=== PATIENT | female | born 2005 | race Caucasian/White ===

== ENCOUNTER 2024-01-11 10:27 | Emergency (ER) | payer BC, SELFPAY ==
[2024-01-11 10:37] VITALS: BP 122/93
--- NOTE | 2024-01-11 11:15 | ED.GENMED ---
History of Present Illness
General
Chief Complaint: Abdominal Symptoms
Time Seen by Provider: 01/11/24 11:15
Travel History
Have you had any contact with someone who has COVID-19?: No
Do you have any symptoms of coronavirus? Fever > 100 degrees, chills, cough, shortness of breath, sore throat, loss of taste or smell, muscle aches, or headache?: No
History of Present Illness
History of Present Illness:
HPI: The patient presents due to diarrhea ongoing for the last several months. She has a history of anorexia for the past 3 years. She had been abusing laxatives but no longer is abusing laxatives. She has been trying to put on weight. She feels
dehydrated. She has no abdominal pain. She also reports prior bradycardia and then tachycardia.
EXAM:
GENERAL: Well appearing in no distress, she appears thin but not cachectic
HEENT: Slightly dry oral mucosa
CARDIOVASCULAR: No murmurs, normal heart rate with heart rate of 72 on my initial evaluation, regular rhythm, No chest wall tenderness
PULMONARY: No respiratory distress, breath sounds are clear and equal
ABDOMEN: Soft with no peritoneal signs, no tenderness
NEUROLOGIC: Excellent strength all extremities, no coordination deficits
PSYCHIATRIC: Appropriate mental status, normal insight and judgement
EXTREMITIES: Nontender, no edema, moves all extremities equally
SKIN: No rash, no lesions
TIME OF INITIAL ENCOUNTER: 11:20 AM
NUMBER AND COMPLEXITY OF PROBLEMS ADDRESSED AT THE ENCOUNTER
� Chronic conditions affecting care: Anorexia
� Acute Exacerbation and/or Progression of Chronic Illness: This is a subacute problem
� Differential Diagnosis includes: Dehydration, electrolyte abnormality, CELIA, infectious diarrhea
AMOUNT AND/OR COMPLEXITY OF DATA TO BE REVIEWED AND ANALYZED
� I performed an independent evaluation of and my interpretation is:
EKG: Sinus 58, no acute ST abnormality, normal intervals
CT:
X-rays:
Laboratory Studies: White count 7.3, hemoglobin normal, chemistries are normal, hCG is negative, lipase is normal, renal function is normal
Other:
� Review of other/old records: The patient was seen here in 2022 with abdominal pain and at that time had a normal white blood cell count and relatively unremarkable chemistries
� Clinical information was obtained by an independent historian: None needed
� Prescriptions/Medications Considered but not given:
� Further testing considered but not performed:
RISK OF COMPLICATIONS AND/OR MORBIDITY OR MORTALITY OF PATIENT MANAGEMENT
� Social determinants of health affecting care: Lives at home
� Discussion with other providers:
� Escalation of care including admission/observation vs risk of discharge considered: The patient has a history of anorexia and presents with months of diarrhea without abdominal pain. She is concerned of dehydration�we are
giving IV fluids. The patient was initially tachycardic however she also admits to feeling very anxious upon arrival to triage. She has been bradycardic in the past and heart rate here has been primarily around 60. On reassessment at 2:45 PM, the
patient appears very comfortable. I also suggest that she follows up with GI. She did receive a liter of fluid. I have relatively low suspicion for an infectious etiology of diarrhea we talked about the possibility of IBS.
Past History
Past History
ED Past Medical History: Psychiatric (Anxiety, depression, panic disorder, anorexia)
ED Past Surgical History: Other (Rhinoplasty 2019)
Social History
Tobacco: Non-smoker
Alcohol: None
Drug: None
Personal: Single
Living: with family
Phy Exam
Physical Exam
Physical Exam:
See HPI
Course
Orders/Labs/Results
Orders:
Orders
01/11/24 11:16
0.9% Sodium Chloride 1000 ml [Nss] 1,000 ml IV BOLUS
01/11/24 11:17
STOOL [C difficile Antigen & Toxins] Urgent
BENEDICT Source: Feces/Stool
Specimen Description:
Stool Culture Urgent
BENEDICT Source: Feces/Stool
Specimen Description:
01/11/24 11:24
Test Result ONCE
01/11/24 11:32
Complete Blood Count/With Diff Urgent
Comprehensive Metabolic Panel Urgent
HCG, Serum Qualitative Screen Urgent
Lipase Urgent
Magnesium Urgent
01/11/24 12:13
ECG [Electrocardiogram (*1)] Urgent
Reason for Study: Tachycardia
01/11/24 12:14
EKG- Treatment ONCE
Abnormal Lab Results
01/11/24
11:32
RBC 3.97 L 10^6/uL
(4.20-5.40)
MCH 32.7 H pg
(27.0-31.0)
01/11/24 11:32
01/11/24 11:32
Vital Signs
Pulse: 72
Initial and Last Documented VS:
Initial Vital Signs
Temp Pulse Resp BP Pulse Ox
98.7 F 114 20 122/93 100
01/11/24 10:37 01/11/24 10:37 01/11/24 10:37 01/11/24 10:37 01/11/24 10:37
Last Documented Vital Signs
Temp Pulse Resp BP Pulse Ox
98.7 F 64 20 92/64 100
01/11/24 10:37 01/11/24 12:58 01/11/24 12:58 01/11/24 12:58 01/11/24 12:58
*Critical Care Note
Total Time (30-74mins, 75-104mins- exclusive of procedures): Not Applicable
ED Attending Note
-
Portions of this chart may have been created with voice recognition software.� Occasional wrong word or��sound alike� substitutions may have occurred due to the inherent limitations of voice recognition software.
Discharge Plan
Departure
Patient Disposition: Home (Routine Discharge)
Date of Disposition: 01/11/24
Time of Disposition: 14:47
Patient with high blood pressure during this ER visit?: Yes
Discharge Problem:
Acute dehydration
Prescriptions:
No Action
ondansetron 4 mg tablet,disintegrating
4 mg PO Q8H PRN (Reason: nausea and vomiting) 4 Days Qty: 10 0RF
pantoprazole [Protonix] 40 mg tablet,delayed release (DR/EC)
40 mg PO DAILY Qty: 30 0RF
Referrals:
Tobias Alfaro MD [Active] - Follow up in 2-3 days
UNKNOWN - PT DOES,NOT KNOW [Family Provider] -
Activity Restrictions/Additional Instructions:
We have given you a bag of fluid for the possibility of some mild dehydration however your blood work is normal. Your white blood cell count is normal, your electrolytes and kidney function are all normal. testing is negative. EKG is
normal. Please follow-up with GI as well.
Interventions
Interventions:
*Risk Screen - Suicide Last Done: 01/11/24 10:40
*General Assessment Last Done: 01/11/24 10:40
*Neglect/Abuse Screening Last Done: 01/11/24 10:40
ED- Fall Risk Assessment Last Done: 01/11/24 11:41
VX-Entaiy-Yczwcgejrm Assessment Last Done: 01/11/24 11:40
Discharge Date and Time
Print Language: [place]
[2024-01-11] MEDS: NSS 1000 IV (11:31)
[2024-01-11 11:35] VITALS: BP 92/66
[2024-01-11 11:46] LABS: % Basophils 0.8 % (0-2); % Eosinophils 5.7 % (0-6); % Immature Granulocytes 0.1 % (0-0.5); % Lymphocytes 26.1 % (20.5-51.1); % Monocytes 5.6 % (1.7-9.3); % Neutrophils 61.7 % (42.2-75.2); Absolute Basophils 0.1 10^3/uL (0-0.2); Absolute Eosinophils 0.4 10^3/uL (0-0.7); Absolute Lymphocytes 1.9 10^3/uL (1.2-3.4); Absolute Monocytes 0.4 10^3/uL (0.1-0.6); Absolute Neutrophils 4.5 10^3/uL (1.4-6.5); Mean Corp Hgb Conc. 35.1 g/dL (33.0-37.0); Mean Corpuscular Hgb 32.7 pg (27.0-31.0); Mean Corpuscular Volume 93.2 fL (81.0-99.0); Mean Platelet Volume 8.9 fL (7.4-10.4); Nucleated Red Blood Cells % 0 %; Platelet Count 334 10^3/uL (130-400); Red Blood Cell Count 3.97 10^6/uL (4.20-5.40); Red Cell Dist. Width 11.9 % (11.5-14.5); White Blood Cell Count 7.3 10^3/uL (4.8-10.8)
[2024-01-11 11:57] LABS: HCG, Serum Qualitative Screen Negative
[2024-01-11 11:58] LABS: ALT (SGPT) 15 U/L (0-35); AST (SGOT) 20 U/L (14-36); Albumin 4.1 g/dl (3.5-5.0); Alkaline Phosphatase 50 U/L (38-126); Blood Urea Nitrogen 11 mg/dl (7-17); Calcium 9.4 mg/dl (8.4-10.2); Carbon Dioxide 26 mmol/L (22-30); Chloride 103 mmol/L (98-107); Glucose 85 mg/dl (70-99); Lipase 55 U/L (23-300); Magnesium 1.7 mg/dl (1.6-2.3); Potassium 4.2 mmol/L (3.5-5.1); Sodium 137 mmol/L (135-145); Total Bilirubin 0.4 mg/dl (0.2-1.3); eGFR > 60.00
[2024-01-11 12:58] VITALS: BP 92/64
[2024-01-11 15:08] VITALS: BP 97/66
== END 2024-01-11 15:09 | disposition home or self-care (01) ==
LOC: EMR 10:27
PROVIDERS: EMERGENCY PHYSICIAN Emergency Medicine
DX: E86.0 Dehydration (principal); R03.0 Elevated blood-pressure reading, without diagnosis of hypertension
CPT/HCPCS: 99284; 96360; 80053; 83690; 83735; 84703; 85025; 93005

== ENCOUNTER → 2024-03-30 09:12 | Outpatient (REF) | payer BC, SELFPAY | LOC: RCS 09:12 | PROVIDERS: ATTENDING PHYSICIAN Nurse Practitioner Adult Health | DX: F50.00 Anorexia nervosa, unspecified (principal) | CPT/HCPCS: 93306 ==

== ENCOUNTER 2024-08-13 12:29 | Emergency (ER) | payer BC, SELFPAY ==
[2024-08-13 12:32] VITALS: BP 130/99
[2024-08-13 13:08] LABS: % Basophils 0.3 % (0-2); % Eosinophils 0.7 % (0-6); % Immature Granulocytes 0.2 % (0-0.5); % Lymphocytes 18.1 % (20.5-51.1); % Monocytes 9.7 % (1.7-9.3); Absolute Eosinophils 0.1 10^3/uL (0-0.7); Absolute Lymphocytes 1.6 10^3/uL (1.2-3.4); Absolute Monocytes 0.9 10^3/uL (0.1-0.6); Absolute Neutrophils 6.3 10^3/uL (1.4-6.5); Hematocrit 41.2 % (37.0-47.0); Hemoglobin 14.4 g/dL (12.0-16.0); Mean Corpuscular Hgb 31.2 pg (27.0-31.0); Mean Corpuscular Volume 89.2 fL (81.0-99.0); Mean Platelet Volume 9.2 fL (7.4-10.4); Nucleated Red Blood Cells % 0 %; Platelet Count 313 10^3/uL (130-400); Red Blood Cell Count 4.62 10^6/uL (4.20-5.40); Red Cell Dist. Width 11.5 % (11.5-14.5); White Blood Cell Count 8.9 10^3/uL (4.8-10.8)
[2024-08-13 13:18] LABS: HCG, Serum Qualitative Screen Negative
[2024-08-13 13:21] LABS: ALT (SGPT) 26 U/L (0-35); AST (SGOT) 25 U/L (14-36); Alkaline Phosphatase 55 U/L (38-126); Blood Urea Nitrogen 12 mg/dl (7-17); Calcium 9.9 mg/dl (8.4-10.2); Carbon Dioxide 25 mmol/L (22-30); Chloride 103 mmol/L (98-107); Glucose 98 mg/dl (70-99); Potassium 3.7 mmol/L (3.5-5.1); Sodium 140 mmol/L (135-145); Total Bilirubin 0.5 mg/dl (0.2-1.3); Total Protein 7.9 g/dl (6.3-8.2); eGFR > 60.00
[2024-08-13 13:38] LABS: Monotest Negative (Negative)
[2024-08-13 13:40] LABS: COVID-19 Antigen Negative (Negative)
== END 2024-08-13 13:54 ==
LOC: EMR 12:29
PROVIDERS: Emergency Medicine; FAMILY PHYSICIAN Nurse Practitioner Adult Health
DX: R00.0 Tachycardia, unspecified (principal)
CPT/HCPCS: 80053; 84703; 85025; 86308; 87070; 87502; 87811; 87880

== ENCOUNTER 2024-08-15 12:19 | Emergency (ER) | payer BC, SELFPAY ==
[2024-08-15 12:21] VITALS: BP 130/91
--- NOTE | 2024-08-15 12:28 | ED.GENMED ---
ED Provider Triage
<Jessica Barahona ENTERPRISE ACCOUNT MANAGER - Last Filed: 08/15/24 12:39>
-
Patient seen by provider in Triage?: Seen in Triage
Attestation: A medical screening examination has been initiated by a qualified medical provider. Based on the assessment performed at this time, it has been determined that an emergent medical condition may exist and the patient has been informed
that further medical evaluation and possible additional diagnostic testing may be needed.
HPI:
18-year-old female here with sore throat. She was initially evaluated here 2 days ago, and she has had blood work drawn but left prior to being evaluated.
Labs, including mono test were neg
Went to Urgent Care yesterday as fever was 102.0, started on Amoxicillin, Has had two doses so far. Last Tylenol last night.
She states she's here as her mom was worried 'because I have POTS and anorexia and I haven't been eating.' Pt states 'I'm afraid I'll slip back to anorexia'
GENERAL: Alert , in no apparent distress
EYE: No visual abnormalities.
NECK: Trachea midline, mild tender bilateral cervical lymphadenopathy
ENT: No visible abnormalities. Pharynx mildly erythematous, no abscess. Speaking well.
LUNGS: No acute respiratory distress
NEUROLOGICAL: Alert and oriented
SKIN: Skin intact. No visible changes.
MUSCULOSKELETAL: Moving extremities normally
PSYCH: Normal and appropriate interaction.
This is a medical evaluation conducted in person to initiate diagnostic evaluation and provide initial therapeutics. Please see further documentation by the treating clinician.
History of Present Illness
<Jessica Barahona ENTERPRISE ACCOUNT MANAGER - Last Filed: 08/15/24 12:39>
General
Chief Complaint: Cold/Flu/URI Symptoms
Time Seen by Provider: 08/15/24 14:36
<Gray Cuenca Jr., PA-C - Last Filed: 08/15/24 16:55>
General
Source: patient and family
Exam Limitations: none
Nursing documentation reviewed up to this point in time: agreed with
History of Present Illness
History of Present Illness:
18-year-old female presenting to the emergency department today with concerns of sore throat ongoing over the past week or so. Had negative mono testing a few days ago still trouble swallowing here. Denies any chest pain shortness of breath does
feel some fatigue.
Past History
<Jessica Barahona, ENTERPRISE ACCOUNT MANAGER - Last Filed: 08/15/24 12:39>
Past History
ED Past Medical History: Psychiatric (Anxiety, depression, panic disorder, anorexia)
ED Past Surgical History: Other (Rhinoplasty 2020)
Social History
Tobacco: Non-smoker
Alcohol: None
Drug: None
Personal: Single
Living: with family
Review of Systems
<Gray Cuenca Jr., PA-C - Last Filed: 08/15/24 16:55>
Review of Systems
Allergies reviewed?: Yes
All Other Systems: ROS reviewed and negative except as documented in HPI and ROS
Phy Exam
<Gray Cuenca Jr., PA-C - Last Filed: 08/15/24 16:55>
Physical Exam
Physical Exam:
GENERAL: Alert , in no apparent distress
EYE: pupils equal and reactive
NECK: Supple, no significant adenopathy.
ENT: Cobblestoning of the posterior pharynx. No significant tonsillar swelling. o/p clr, mmm.
CARDIAC: Regular rate and rhythm .
LUNGS: Clear breath sounds bilaterally, no acute respiratory distress, no wheezes/rales/rhonchi
ABDOMEN: Soft, without focal tenderness, no r/g, no cvat
NEUROLOGICAL: Alert and oriented, no focal neuro deficits
SKIN: Warm and dry, skin intact.
MUSCULOSKELETAL: No edema, well perfused.
PSYCH: Normal and appropriate interaction.
Course
<Jessica Barahona, ENTERPRISE ACCOUNT MANAGER - Last Filed: 08/15/24 12:39>
Orders/Labs/Results
Orders:
Orders
08/15/24 12:36
0.9% Sodium Chloride 1000 ml [Nss] 1,000 ml IV BOLUS
Dexamethasone Sod Phosphate [Decadron] 10 mg IV NOW STA
Ketorolac [Toradol] 15 mg IV NOW STA
08/15/24 14:37
Vital Signs- Treatment ONCE
Frequency: Once
08/15/24 14:46
CBC/With Diff [Complete Blood Count/With Diff] Urgent
CMP [Comprehensive Metabolic Panel] Urgent
Abnormal Lab Results
08/15/24
14:46
WBC 11.0 H 10^3/uL
(4.8-10.8)
MCH 31.2 H pg
(27.0-31.0)
Absolute Neuts (auto) 9.7 H 10^3/uL
(1.4-6.5)
Absolute Lymphs (auto) 1.0 L 10^3/uL
(1.2-3.4)
Neutrophils % 88.3 H %
(42.2-75.2)
Lymphocytes % 8.7 L %
(20.5-51.1)
BUN 6 L mg/dl
(7-17)
Calcium 8.1 L D mg/dl
(8.4-10.2)
08/15/24 14:46
08/15/24 14:46
Vital Signs
Initial and Last Documented VS:
Initial Vital Signs
Temp Pulse Resp BP Pulse Ox
100 F 119 20 130/91 100
08/15/24 12:21 08/15/24 12:21 08/15/24 12:21 08/15/24 12:21 08/15/24 12:21
Last Documented Vital Signs
Temp Pulse Resp BP Pulse Ox
100 F 83 18 116/67 100
08/15/24 12:21 08/15/24 14:52 08/15/24 14:52 08/15/24 14:52 08/15/24 14:52
<Gray Cuenca Jr., BEATRIZ-Faby - Last Filed: 08/15/24 16:55>
Orders/Labs/Results
Orders:
Orders
08/15/24 12:36
0.9% Sodium Chloride 1000 ml [Nss] 1,000 ml IV BOLUS
Dexamethasone Sod Phosphate [Decadron] 10 mg IV NOW STA
Ketorolac [Toradol] 15 mg IV NOW STA
08/15/24 14:37
Vital Signs- Treatment ONCE
Frequency: Once
08/15/24 14:46
CBC/With Diff [Complete Blood Count/With Diff] Urgent
CMP [Comprehensive Metabolic Panel] Urgent
Abnormal Lab Results
08/15/24
14:46
WBC 11.0 H 10^3/uL
(4.8-10.8)
MCH 31.2 H pg
(27.0-31.0)
Absolute Neuts (auto) 9.7 H 10^3/uL
(1.4-6.5)
Absolute Lymphs (auto) 1.0 L 10^3/uL
(1.2-3.4)
Neutrophils % 88.3 H %
(42.2-75.2)
Lymphocytes % 8.7 L %
(20.5-51.1)
BUN 6 L mg/dl
(7-17)
Calcium 8.1 L D mg/dl
(8.4-10.2)
08/15/24 14:46
08/15/24 14:46
Vital Signs
Initial and Last Documented VS:
Initial Vital Signs
Temp Pulse Resp BP Pulse Ox
100 F 119 20 130/91 100
08/15/24 12:21 08/15/24 12:21 08/15/24 12:21 08/15/24 12:21 08/15/24 12:21
Last Documented Vital Signs
Temp Pulse Resp BP Pulse Ox
100 F 83 18 116/67 100
08/15/24 12:21 08/15/24 14:52 08/15/24 14:52 08/15/24 14:52 08/15/24 14:52
<Gray Cuenca Jr., PA-C - Last Filed: 08/15/24 16:55>
MDM/Problems Addressed
MDM/Problems Addressed:
18-year-old female presenting to the emergency department today with concerns of sore throat of the past week or so. Was given a initial dose of steroid here with significant improvement able tolerate by mouth vital signs normal labs showing slight
white count but otherwise no emergent findings. Recent mono was negative symptoms do not appear to consist of strep throat. Otherwise patient with likely viral syndrome plan for symptomatic treatment and steroids help with inflammation. Stable
for outpatient management. Return precautions given.
<Gray Cuenca Jr., PA-C - Last Filed: 08/15/24 16:55>
*Critical Care Note
Total Time (30-74mins, 75-104mins- exclusive of procedures): Not Applicable
ED Attending Note
<Jessica Barahona ENTERPRISE ACCOUNT MANAGER - Last Filed: 08/15/24 12:39>
-
Portions of this chart may have been created with voice recognition software.� Occasional wrong word or��sound alike� substitutions may have occurred due to the inherent limitations of voice recognition software.
Discharge Plan
Departure
Patient Disposition: Home (Routine Discharge)
Date of Disposition: 08/15/24
Time of Disposition: 16:53
Patient with high blood pressure during this ER visit?: No
Condition: Good
Covid-19: Not Applicable
Discharge Problem:
Acute viral syndrome, Throat pain
Instructions: Viral Upper Respiratory Infection, Adult (DC)
Prescriptions:
New
prednisone 20 mg tablet
40 mg PO DAILY 4 Days Qty: 8 0RF
No Action
ondansetron 4 mg tablet,disintegrating
4 mg PO Q8H PRN (Reason: nausea and vomiting) 4 Days Qty: 10 0RF
pantoprazole [Protonix] 40 mg tablet,delayed release (DR/EC)
40 mg PO DAILY Qty: 30 0RF
Referrals:
Yelena Lance CRNP [Family Provider] -
Activity Restrictions/Additional Instructions:
You came to the emergency department today with concerns of throat discomfort. Otherwise your throat workup here was reassuring. Please take the prescribed steroid and otherwise follow-up closely with the primary care doctor. Return to the
emergency department any worsening, new or concerning symptoms.
Interventions
Interventions:
*Risk Screen - Suicide Last Done: 08/15/24 12:25
*General Assessment Last Done: 08/15/24 12:59
*Neglect/Abuse Screening Last Done: 08/15/24 12:25
*ED COVID-19 Vaccine History Last Done: 08/15/24 12:59
ED- Pulmonary Assessment Last Done: 08/15/24 12:59
Discharge Date and Time
Print Language: ROMANIAN
[2024-08-15] MEDS: NSS 1000 IV (12:52)
[2024-08-15] MEDS: TORADOL 15 MG IV (12:53)
[2024-08-15] MEDS: DECADRON 10 MG IV (12:53)
[2024-08-15 14:52] VITALS: BP 116/67
[2024-08-15 14:57] LABS: % Basophils 0.3 % (0-2); % Eosinophils 0.1 % (0-6); % Immature Granulocytes 0.4 % (0-0.5); % Lymphocytes 8.7 % (20.5-51.1); % Monocytes 2.2 % (1.7-9.3); % Neutrophils 88.3 % (42.2-75.2); Absolute Monocytes 0.2 10^3/uL (0.1-0.6); Absolute Neutrophils 9.7 10^3/uL (1.4-6.5); Hematocrit 38.2 % (37.0-47.0); Hemoglobin 13.2 g/dL (12.0-16.0); Mean Corp Hgb Conc. 34.6 g/dL (33.0-37.0); Mean Corpuscular Hgb 31.2 pg (27.0-31.0); Mean Corpuscular Volume 90.3 fL (81.0-99.0); Mean Platelet Volume 9.1 fL (7.4-10.4); Nucleated Red Blood Cells % 0 %; Platelet Count 276 10^3/uL (130-400); Red Blood Cell Count 4.23 10^6/uL (4.20-5.40); Red Cell Dist. Width 11.9 % (11.5-14.5)
[2024-08-15 15:12] LABS: ALT (SGPT) 24 U/L (0-35); AST (SGOT) 19 U/L (14-36); Alkaline Phosphatase 69 U/L (38-126); Blood Urea Nitrogen 6 mg/dl (7-17); Calcium 8.1 mg/dl (8.4-10.2); Carbon Dioxide 24 mmol/L (22-30); Chloride 107 mmol/L (98-107); Glucose 95 mg/dl (70-99); Potassium 3.9 mmol/L (3.5-5.1); Sodium 141 mmol/L (135-145); Total Bilirubin 0.3 mg/dl (0.2-1.3); Total Protein 6.6 g/dl (6.3-8.2); eGFR > 60.00
[2024-08-15 17:18] VITALS: BP 118/70
== END 2024-08-15 17:19 | disposition home or self-care (01) ==
LOC: EMR 12:19
PROVIDERS: Physician Assistant; EMERGENCY PHYSICIAN Student in an Organized Health Care Education/Training Program; FAMILY PHYSICIAN Nurse Practitioner Adult Health
DX: B34.9 Viral infection, unspecified (principal); R07.0 Pain in throat; G90.A Postural orthostatic tachycardia syndrome [POTS]
CPT/HCPCS: 99283; 96374; 96375; 96361; 80053; 85025

== ENCOUNTER → 2024-12-12 07:33 | Outpatient (REF) | payer BC, SELFPAY | LOC: RAD 07:33 | PROVIDERS: ATTENDING PHYSICIAN Physician Assistant; FAMILY PHYSICIAN Nurse Practitioner Adult Health | DX: R10.30 Lower abdominal pain, unspecified (principal); R11.0 Nausea | CPT/HCPCS: 78264; A9541 ==